=== PATIENT | female | born 1970 | race American Indian/Alaskan Native ===

== ENCOUNTER 2017-10-01 22:10 | Emergency (ER) | payer MEDICAID, OTHER ==
--- NOTE | 2017-10-01 22:48 | EDM.PDOC ---
ED HPI GENERAL MEDICAL PROBLEM - General Chief Complaint: Medication Administration Stated Complaint: ANXIETY MEDS Time Seen by Provider: 10/01/17 22:40 Source of Information: Reports: Patient History Limitations: Reports: No Limitations - History of Present Illness INITIAL COMMENTS - FREE TEXT/NARRATIVE: This 47 yo female patient reports to the ED with increased anxiety due to her falling. The patient reports she took her last Clonazepam just prior to coming to the ED. The patient reports her last refill was in January of last year. The patient reports she has been having a "scratchy" throat for the past 3-4 days. Onset: Unknown/Unsure Duration: Constant Location: Reports: Neck Quality: Reports: Ache, Dull Severity: Moderate Improves with: Reports: None Worsens with: Reports: None Associated Symptoms: Reports: No Other Symptoms - Related Data Allergies Allergy/AdvReac Type Severity Reaction Status Date / Time cyclobenzaprine Allergy Other Verified 10/01/17 22:21 Home Meds: Home Meds Venlafaxine HCl [Venlafaxine ER] 1 tab PO DAILY 10/01/17 [History] clonazePAM [Clonazepam] 1 tab PO DAILY PRN 10/01/17 [History] Past Medical History Psychiatric History: Reports: Anxiety, Depression ED ROS GENERAL - Review of Systems Review Of Systems: ROS reveals no pertinent complaints other than HPI. ED EXAM, GENERAL - Physical Exam Exam: See Below Exam Limited By: No Limitations General Appearance: Alert, WD/WN, Mild Distress Eye Exam: Bilateral Eye: EOMI, Normal Inspection, PERRL Ears: Normal External Exam, Normal Canal, Hearing Grossly Normal, Normal TMs Nose: Normal Inspection, Normal Mucosa, No Blood Throat/Mouth: Normal Inspection, Normal Lips, Normal Teeth, Normal Gums, Normal Voice, No Airway Compromise, Other (slight erythema posterior pharynx) Head: Atraumatic, Normocephalic Neck: Normal Inspection, Supple, Non-Tender, Full Range of Motion Respiratory/Chest: No Respiratory Distress, Lungs Clear, Normal Breath Sounds, No Accessory Muscle Use, Chest Non-Tender Cardiovascular: Normal Peripheral Pulses, Regular Rate, Rhythm, No Edema, No Gallop, No JVD, No Murmur, No Rub GI/Abdominal: Normal Bowel Sounds, Soft, Non-Tender, No Organomegaly, No Distention, No Abnormal Bruit, No Mass (Female) Exam: Deferred Rectal (Female) Exam: Deferred Back Exam: Normal Inspection, Full Range of Motion, NT Extremities: Normal Inspection, Normal Range of Motion, Non-Tender, Normal Capillary Refill, No Pedal Edema Neurological: Alert, Oriented, CN II-XII Intact, Normal Cognition, Normal Gait, Normal Reflexes, No Motor/Sensory Deficits Psychiatric: Normal Affect, Normal Mood Skin Exam: Warm, Dry, Intact, Normal Color, No Rash Lymphatic: No Adenopathy Course - Vital Signs Last Recorded V/S: Last Vital Signs Temp 35.7 C 10/01/17 22:38 Pulse 94 10/01/17 22:38 Resp 16 10/01/17 22:38 BP 144/98 H 10/01/17 22:38 Pulse Ox 99 10/01/17 22:38 - Orders/Labs/Meds Orders: Active Orders 24 hr Category Date Time Status CULTURE STREP A CONFIRMATION [RM] Stat Lab 10/01/17 22:45 Results STREP SCRN A RAPID W CULT CONF [RM] Stat Lab 10/01/17 22:45 Results Departure - Departure Time of Disposition: 22:58 Disposition: Home, Self-Care 01 Condition: Fair Clinical Impression: Anxiety URI (upper respiratory infection) Qualifiers: URI type: unspecified viral URI Qualified Code(s): J06.9 - Acute upper respiratory infection, unspecified - Discharge Information Forms: ED Department Discharge Care Plan Goals: The patient was advised of the examination and lab results during the visit. The patient was encouraged to follow-up with her primary care facility for a refill of her medications. The patient may take over the counter medications for temporary symptom relief from the upper respiratory symptoms. If the patient has any additional symptoms or concerns, the patient should visit her primary care facility or return to the emergency department. - My Orders Last 24 Hours: My Active Orders 10/01/17 22:45 CULTURE STREP A CONFIRMATION [RM] Stat STREP SCRN A RAPID W CULT CONF [RM] Stat - Assessment/Plan Last 24 Hours: My Active Orders 10/01/17 22:45 CULTURE STREP A CONFIRMATION [RM] Stat STREP SCRN A RAPID W CULT CONF [RM] Stat
== END 2017-10-01 23:11 | disposition home or self-care (01) ==
LOC: DL.ED 22:10
DX: F41.9 Anxiety disorder, unspecified (principal); J06.9 Acute upper respiratory infection, unspecified; F32.9 Major depressive disorder, single episode, unspecified; Z79.899 Other long term (current) drug therapy; Z88.8 Allergy status to other drugs, medicaments and biological substances
CPT/HCPCS: 87081; 87430; 99282

== ENCOUNTER 2017-12-14 17:52 | Emergency (ER) | payer MEDICAID, OTHER ==
[2017-12-14] MEDS ORDERED: ClonazePAM 0.5 MG Tab PO ONE (18:24)
--- NOTE | 2017-12-19 09:15 | EDM.PDOCBH ---
Scribed by Gege Tee 12/19/17 0915 for Juhi Del Cid NP ED HPI GENERAL MEDICAL PROBLEM - General Chief Complaint: Behavioral/Psych Stated Complaint: [id number] ANXIETY Time Seen by Provider: 12/14/17 18:15 Source of Information: Reports: Patient, RN, RN Notes Reviewed History Limitations: Reports: No Limitations - History of Present Illness INITIAL COMMENTS - FREE TEXT/NARRATIVE: Patient presents to ER with complaint of anxiety. She states that she has a history of anxiety. She ran out of her clonazepam and cannot get an appointment with mental health until Tuesday. Denies chest pain, shortness of breath, nausea, vomiting, diarrhea, fever or chills. Onset: Gradual Duration: Getting Worse Location: Reports: Generalized Quality: Reports: Ache Severity: Mild Improves with: Reports: None Worsens with: Reports: None Associated Symptoms: Reports: No Other Symptoms - Related Data Allergies Allergy/AdvReac Type Severity Reaction Status Date / Time cyclobenzaprine Allergy Other Verified 10/01/17 22:21 Home Meds: Home Meds Venlafaxine HCl [Venlafaxine ER] 1 tab PO DAILY 10/01/17 [History] clonazePAM [Clonazepam] 1 tab PO DAILY PRN 10/01/17 [History] Past Medical History Psychiatric History: Reports: Anxiety, Depression, Panic Attack Social & Family History - Tobacco Use Smoking Status *Q: Unknown Ever Smoked - Caffeine Use Caffeine Use: Reports: Coffee - Recreational Drug Use Recreational Drug Use: No ED ROS GENERAL - Review of Systems Review Of Systems: ROS reveals no pertinent complaints other than HPI. ED EXAM, BEHAVIORAL HEALTH - Physical Exam Exam: See Below Exam Limited By: No Limitations General Appearance: Anxious Eye Exam: Bilateral Eye: EOMI, Normal Inspection Ears: Normal External Exam Nose: Normal Inspection Throat/Mouth: Normal Inspection, Normal Lips, Normal Voice Head: Atraumatic, Normocephalic Neck: Normal Inspection, Supple, Non-Tender, Full Range of Motion Respiratory/Chest: No Respiratory Distress, Lungs Clear, Normal Breath Sounds, No Accessory Muscle Use, Chest Non-Tender Cardiovascular: Normal Peripheral Pulses GI/Abdominal: Normal Bowel Sounds, Soft, Non-Tender, No Organomegaly, No Distention, No Abnormal Bruit, No Mass (Female) Exam: Deferred Rectal (Female) Exam: Deferred Back Exam: Normal Inspection Extremities: Normal Inspection, Normal Range of Motion, No Pedal Edema Neurological: Alert, Normal Mood/Affect, No Motor/Sensory Deficits Psychiatric: Other (anxious) Skin Exam: Warm, Dry, Intact, Normal color, No rash COURSE, BEHAVIORAL HEALTH COMP - Course Vital Signs: Last Vital Signs Temp 98 F 12/14/17 17:57 Pulse 94 12/14/17 17:57 Resp 18 12/14/17 17:57 BP 144/99 H 12/14/17 17:57 Pulse Ox 98 12/14/17 17:57 Orders, Labs, Meds: Medications Discontinued Medications Generic Name Dose Route Start Last Admin Trade Name Freq PRN Reason Stop Dose Admin Clonazepam 0.5 mg 12/14/17 18:24 12/14/17 18:37 Klonopin PO 12/14/17 18:25 0.5 mg ONETIME ONE Administration Departure - Departure Time of Disposition: 18:23 Disposition: Home, Self-Care 01 Condition: Good Clinical Impression: Anxiety - Discharge Information Instructions: Generalized Anxiety Disorder, Adult, Panic Attack, [id number] Referrals: Jennifer Natarajan MD [Primary Care Provider] - Forms: ED Department Discharge Additional Instructions: RX: Clonazepam 0.5mg. Follow up with your primary care facility/mental health. I have read and agree with the documentation that has been completed regarding this visit. By signing this record, I attest that the documentation was completed in my physical presence and is an accurate record of the encounter.
== END 2017-12-14 18:45 | disposition home or self-care (01) ==
LOC: DL.ED 17:52
DX: F41.9 Anxiety disorder, unspecified (principal); Z88.8 Allergy status to other drugs, medicaments and biological substances; Z79.899 Other long term (current) drug therapy
CPT/HCPCS: 99283; A9270

== ENCOUNTER 2018-02-19 20:26 | Emergency (ER) | payer MEDICAID, OTHER ==
[2018-02-19] MEDS ORDERED: traMADol 50 MG Tab PO ONE (21:16)
[2018-02-19] MEDS ORDERED: Clindamycin HCl 150 MG Cap PO ONE (21:16)
--- NOTE | 2018-02-19 21:18 | EDM.PDOC ---
ED HPI GENERAL MEDICAL PROBLEM - General Chief Complaint: Skin Complaint Stated Complaint: ABSCESS ON SIDE [id number] Time Seen by Provider: 02/19/18 21:12 Source of Information: Reports: Patient History Limitations: Reports: No Limitations - History of Present Illness INITIAL COMMENTS - FREE TEXT/NARRATIVE: c/o recurrent abscess to back. hurts can't sleep unable to lay on back. Right Hip Pain Score (Numeric/FACES): 4 - Related Data Allergies Allergy/AdvReac Type Severity Reaction Status Date / Time cyclobenzaprine Allergy Other Verified 02/19/18 21:10 rofecoxib [From Vioxx] Allergy Other Verified 02/19/18 21:10 Home Meds: Home Meds clonazePAM [Clonazepam] 1 tab PO DAILY PRN 10/01/17 [History] Venlafaxine [Effexor] 37.5 mg PO DAILY 02/19/18 [History] Past Medical History - Past Health History Medical/Surgical History: Denies Medical/Surgical History Psychiatric History: Reports: Anxiety, Depression, Panic Attack - Past Surgical History GI Surgical History: Reports: Cholecystectomy Social & Family History - Tobacco Use Smoking Status *Q: Never Smoker - Caffeine Use Caffeine Use: Reports: Coffee - Recreational Drug Use Recreational Drug Use: No ED ROS GENERAL - Review of Systems Review Of Systems: ROS reveals no pertinent complaints other than HPI. ED EXAM, SKIN/RASH Exam: See Below Exam Limited By: No Limitations General Appearance: Alert, WD/WN, Mild Distress, Other (tearfull) Ears: Hearing Grossly Normal Throat/Mouth: Normal Voice, No Airway Compromise Head: Atraumatic Neck: Non-Tender, Full Range of Motion Respiratory/Chest: No Respiratory Distress Cardiovascular: Regular Rate, Rhythm GI/Abdominal: Soft, Non-Tender Back Exam: Other (2x 1" size form tender mildly erythematous abscess without lymphangitis, 3 x 1/4" firm tender minimal erythema without lymphangitis) Neurological: Alert, Oriented, Normal Cognition, Normal Gait, No Motor/Sensory Deficits Psychiatric: Tearful Skin: Warm, Dry, Normal Color Location, Skin: Back Characteristics: Erythematous Associated features: Tenderness, Inflammation. No: Lymphangitis, Crusting, Weeping Lymphatic: No Adenopathy Course - Vital Signs Last Recorded V/S: Last Vital Signs Temp 36.6 C 02/19/18 20:56 Pulse 94 02/19/18 20:56 Resp 17 07/22/18 20:56 BP 144/89 H 02/19/18 20:56 Pulse Ox 100 02/19/18 20:56 Departure - Departure Time of Disposition: 21:15 Disposition: Home, Self-Care 01 Condition: Good Clinical Impression: Abscess - Discharge Information Instructions: Skin Abscess, [id number] Additional Instructions: 1) try heat pad to abscesses 2) keep abscess covered 3) follow up at clinic rx given; clindamycin 150mg qid x 40 tramadol 50mg daily prn x 4
== END 2018-02-19 21:25 | disposition home or self-care (01) ==
LOC: DL.ED 20:26
DX: L02.212 Cutaneous abscess of back [any part, except buttock and flank] (principal); F41.9 Anxiety disorder, unspecified; F32.9 Major depressive disorder, single episode, unspecified; Z79.899 Other long term (current) drug therapy; Z88.1 Allergy status to other antibiotic agents; Z88.8 Allergy status to other drugs, medicaments and biological substances
CPT/HCPCS: 99282; A9270

== ENCOUNTER 2018-11-23 02:50 | Emergency (ER) | payer MEDICAID, OTHER ==
--- NOTE | 2018-11-23 03:16 | EDM.PDOC ---
ED HPI GENERAL MEDICAL PROBLEM - General Chief Complaint: General Stated Complaint: COLD [id number] Time Seen by Provider: 11/23/18 03:10 Source of Information: Reports: Patient History Limitations: Reports: No Limitations - History of Present Illness INITIAL COMMENTS - FREE TEXT/NARRATIVE: cold congestion x 2 days, no fever or cough. 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 ED EXAM, GENERAL - Physical Exam Exam: See Below Exam Limited By: No Limitations General Appearance: Alert, No Apparent Distress Eye Exam: Bilateral Eye: EOMI Ears: Normal External Exam, Normal TMs Nose: Normal Inspection, Nasal Drainage (scant clear) Throat/Mouth: Normal Inspection Head: Atraumatic, Normocephalic Neck: Normal Inspection Respiratory/Chest: No Respiratory Distress Cardiovascular: Normal Peripheral Pulses, No Murmur GI/Abdominal: Normal Bowel Sounds, Soft Back Exam: Normal Inspection Extremities: Normal Inspection Neurological: Alert, Oriented, Normal Cognition Psychiatric: Normal Affect, Normal Mood Skin Exam: Warm, Dry, Intact Course - Vital Signs Last Recorded V/S: Last Vital Signs Temp 97.0 F 11/23/18 02:59 Pulse 73 11/23/18 02:59 Resp 18 11/23/18 02:59 BP 156/94 H 11/23/18 02:59 Pulse Ox 100 11/23/18 02:59 Departure - Departure Time of Disposition: 03:11 Disposition: Home, Self-Care 01 Condition: Good Clinical Impression: Posterior auricular lymphadenopathy URI (upper respiratory infection) Qualifiers: URI type: unspecified viral URI Qualified Code(s): J06.9 - Acute upper respiratory infection, unspecified - Discharge Information *PRESCRIPTION DRUG MONITORING PROGRAM REVIEWED*: No *COPY OF PRESCRIPTION DRUG MONITORING REPORT IN PATIENT INDU: No Instructions: Upper Respiratory Infection, Adult, [id number] Additional Instructions: increase fluids over counter cough and cold medication as needed per label instruction humidifier follow up if symptoms worsen or increased redness ,swelling of lesion on right side of neck
== END 2018-11-23 03:42 | disposition home or self-care (01) ==
LOC: DL.ED 02:50
CPT/HCPCS: 99282

== ENCOUNTER 2018-12-10 04:19 | Emergency (ER) | payer MEDICAID, OTHER ==
[2018-12-10] MEDS ORDERED: Clindamycin HCl 150 MG Cap PO ONE (04:20)
[2018-12-10] MEDS ORDERED: Clindamycin HCl 150 MG Cap ONE (04:50)
--- NOTE | 2018-12-10 04:56 | EDM.PDOC ---
ED HPI GENERAL MEDICAL PROBLEM - General Chief Complaint: Skin Complaint Stated Complaint: BITE? INFECTED [id number] Time Seen by Provider: 12/10/18 04:30 Source of Information: Reports: Patient History Limitations: Reports: No Limitations - History of Present Illness INITIAL COMMENTS - FREE TEXT/NARRATIVE: C/O abscess to forehead for past 3 days, started out like white pimple picked at it tonight earlier and had some white drainage, hotpacked and put bacitracin on it. Later noted swelling to forehead. No fever or chills. 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 ED EXAM, SKIN/RASH Exam: See Below Exam Limited By: No Limitations General Appearance: Alert, Anxious Eye Exam: Bilateral Eye: EOMI Ears: Normal External Exam Nose: Normal Inspection Throat/Mouth: Normal Inspection Head: Atraumatic, Normocephalic Neck: Normal Inspection Respiratory/Chest: No Respiratory Distress, Lungs Clear, Normal Breath Sounds Cardiovascular: Normal Peripheral Pulses, Regular Rate, Rhythm Back Exam: Full Range of Motion Neurological: Alert, Oriented, Normal Cognition Psychiatric: Anxious Skin: Warm, Dry, Wound/Incision (3mm central crusted lesion right outer forehead with surrounding 1.5cm light pink tender to touch) Course - Vital Signs Last Recorded V/S: Last Vital Signs Temp 97.7 F 12/10/18 04:25 Pulse 94 12/10/18 04:25 Resp 18 12/10/18 04:25 BP 161/101 H 12/10/18 04:25 Pulse Ox 100 12/10/18 04:25 - Orders/Labs/Meds Orders: Active Orders 24 hr Category Date Time Status COMPREHENSIVE METABOLIC PN,CMP [CHEM] Stat Lab 12/10/18 04:40 Received CULTURE BLOOD [BC] Stat Lab 12/10/18 04:40 Received Labs: Laboratory Tests 12/10/18 Range/Units 04:40 WBC 7.7 (5.0-10.0) 10^3/uL RBC 5.04 (4.2-5.4) 10^6/uL Hgb 14.3 (12.0-16.0) g/dL Hct 42.5 (37.0-47.0) % MCV 84.3 (80-100) fL MCH 28.4 (27.0-34.0) pg MCHC 33.6 (33.0-35.0) g/dL Plt Count 279 (150-450) 10^3/uL Neut % (Auto) 50.3 (42.2-75.2) % Lymph % (Auto) 40.3 (20.5-50.1) % Wayne % (Auto) 6.9 (2-8) % Eos % (Auto) 2.2 (1.0-3.0) % Baso % (Auto) 0.3 (0.0-1.0) % Meds: Medications Discontinued Medications Generic Name Dose Route Start Last Admin Trade Name Freq PRN Reason Stop Dose Admin Clindamycin HCl Confirm 12/10/18 04:50 Cleocin Administered 12/10/18 04:51 Dose 600 mg .ROUTE .STK-MED ONE Departure - Departure Time of Disposition: 04:52 Disposition: Home, Self-Care 01 Condition: Good Clinical Impression: Abscess - Discharge Information *PRESCRIPTION DRUG MONITORING PROGRAM REVIEWED*: No *COPY OF PRESCRIPTION DRUG MONITORING REPORT IN PATIENT INDU: No Instructions: Skin Abscess, [id number] Forms: ED Department Discharge Additional Instructions: clindamycin 150mg 2 capsules 4 times daily for one week recheck clinic later this week sooner if increasing redness, swelling and fever warm pack to area 4 times daily bacitracin ointment to abscess - My Orders Last 24 Hours: My Active Orders 12/10/18 04:40 COMPREHENSIVE METABOLIC PN,CMP [CHEM] Stat CULTURE BLOOD [BC] Stat - Assessment/Plan Last 24 Hours: My Active Orders 12/10/18 04:40 COMPREHENSIVE METABOLIC PN,CMP [CHEM] Stat CULTURE BLOOD [BC] Stat
[2018-12-10 05:14] LABS: ANION GAP 13.1; CHLORIDE,CL 104 mmol/L (101-111); SODIUM,NA 136 mmol/L (135-145)
== END 2018-12-10 05:02 | disposition home or self-care (01) ==
LOC: DL.ED 04:19
DX: L02.01 Cutaneous abscess of face (principal); Z88.1 Allergy status to other antibiotic agents; Z79.899 Other long term (current) drug therapy
CPT/HCPCS: 36415; 80053; 85025; 87040; 99283; A9270-GY

== ENCOUNTER 2019-04-28 01:55 | Emergency (ER) | payer MEDICAID ==
[2019-04-28] MEDS ORDERED: Lidocaine 2% Viscous Solution 15 ML Cup PO ONE (01:56)
[2019-04-28] MEDS ORDERED: Clindamycin HCl 150 MG Cap PO ONE (02:28)
[2019-04-28] MEDS ORDERED: traMADol 50 MG Tab PO ONE (02:28)
[2019-04-28] MEDS ORDERED: Lidocaine 2% Viscous Solution 15 ML Cup ONE (02:31)
--- NOTE | 2019-04-28 02:33 | EDM.PDOC ---
ED HPI GENERAL MEDICAL PROBLEM - General Chief Complaint: ENT Problem Stated Complaint: BAD TOOTHACHE Time Seen by Provider: 04/28/19 02:30 Source of Information: Reports: Patient History Limitations: Reports: No Limitations - History of Present Illness INITIAL COMMENTS - FREE TEXT/NARRATIVE: unable to see dentist was at clinic and had some paste put over the hole. Tooth/Teeth Pain Score (Numeric/FACES): 8 - Related Data Allergies Allergy/AdvReac Type Severity Reaction Status Date / Time cyclobenzaprine Allergy Other Verified 04/28/19 02:01 rofecoxib [From Vioxx] Allergy Other Verified 04/28/19 02:01 Home Meds: Home Meds Venlafaxine [Effexor] 37.5 mg PO DAILY 02/19/18 [History] hydrOXYzine HCl [hydrOXYzine] 10 mg PO ASDIRECTED PRN 01/31/19 [History] Past Medical History - Past Health History Medical/Surgical History: Denies Medical/Surgical History HEENT History: Reports: None Cardiovascular History: Reports: None Respiratory History: Reports: None Gastrointestinal History: Reports: None Genitourinary History: Reports: None 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: Musculoskeletal History: Reports: None Neurological History: Reports: None Psychiatric History: Reports: Anxiety, Depression, Panic Attack Endocrine/Metabolic History: Reports: None Hematologic History: Reports: None Immunologic History: Reports: None Oncologic (Cancer) History: Reports: None Dermatologic History: Reports: None - Past Surgical History GI Surgical History: Reports: Cholecystectomy Female Surgical History: Reports: Oophorectomy Social & Family History - Family History Family Medical History: Noncontributory - Tobacco Use Smoking Status *Q: Never Smoker - Caffeine Use Caffeine Use: Reports: Soda - Recreational Drug Use Recreational Drug Use: No ED ROS ENT - Review of Systems Review Of Systems: ROS reveals no pertinent complaints other than HPI. ED EXAM, ENT - Physical Exam Exam: See Below Exam Limited By: No Limitations General Appearance: Alert, WD/WN, Mild Distress, Other (tearful) Ears: Hearing Grossly Normal Mouth/Throat: Dental Abcess, Dental Pain, Dental Tenderness, Other (left lower front molar) Head: Atraumatic Neck: Non-Tender, Full Range of Motion Respiratory/Chest: No Respiratory Distress Cardiovascular: Regular Rate, Rhythm GI/Abdominal: Soft, Non-Tender Neurological: Alert, Oriented, Normal Cognition, Normal Gait, No Motor/Sensory Deficits Psychiatric: Tearful Skin: Warm, Dry, Normal Color Lymphatic: No Adenopathy Course - Vital Signs Last Recorded V/S: Last Vital Signs Temp 35.3 C 04/28/19 02:02 Pulse 74 04/28/19 02:02 Resp 18 04/28/19 02:02 BP 147/91 H 04/28/19 02:02 Pulse Ox 100 04/28/19 02:02 - Orders/Labs/Meds Meds: Medications Discontinued Medications Generic Name Dose Route Start Last Admin Trade Name Freq PRN Reason Stop Dose Admin Clindamycin HCl 300 mg 04/28/19 02:28 Cleocin PO 04/28/19 02:29 ONETIME ONE Tramadol HCl 50 mg 04/28/19 02:28 Ultram PO 04/28/19 02:29 ONETIME ONE Departure - Departure Time of Disposition: 02:31 Disposition: Home, Self-Care 01 Condition: Good Clinical Impression: Dental caries extending into dentin, Dental abscess, Dental caries - Discharge Information Instructions: Dental Abscess, [id number] Additional Instructions: 1) avoid solid foods 2) see DENTIST Tuesday rx given; clindamycin 300mg qid x 40 rx togo; lido viscous apply prn
== END 2019-04-28 02:42 | disposition home or self-care (01) ==
LOC: DL.ED 01:55
DX: K04.7 Periapical abscess without sinus (principal); K02.9 Dental caries, unspecified; F41.9 Anxiety disorder, unspecified; F32.9 Major depressive disorder, single episode, unspecified; Z90.49 Acquired absence of other specified parts of digestive tract; Z79.899 Other long term (current) drug therapy; Z88.8 Allergy status to other drugs, medicaments and biological substances
CPT/HCPCS: 99282; A9270

== ENCOUNTER 2019-05-15 15:14 | Emergency (ER) | payer MEDICAID | END 2019-05-15 17:16 | LOC: DL.ED 15:14 | DX: Z53.21 Procedure and treatment not carried out due to patient leaving prior to being seen by health care provider (principal) ==

== ENCOUNTER 2019-07-12 20:37 | Emergency (ER) | payer MEDICAID ==
--- NOTE | 2019-07-12 21:02 | EDM.PDOC ---
ED HPI GENERAL MEDICAL PROBLEM - General Chief Complaint: ENT Problem Stated Complaint: LEFT BOTTOM JAW AREA TOOTH ACHE Time Seen by Provider: 07/12/19 21:02 Source of Information: Reports: Patient, RN, RN Notes Reviewed History Limitations: Reports: No Limitations - History of Present Illness INITIAL COMMENTS - FREE TEXT/NARRATIVE: patient presents to ER with complaint of toothache in the first left lower molar. patient states she has not been seen by a dentist in quite some time. She states she has had this pain in the past, was seen in the ER, and started on antibiotics. Patient states the pain is a 4/10, with difficulty chewing on the left side, and pain in the left lower jaw. Patient denies fever or chills. Patient denies using Tylenol or ibuprofen for pain, or Orajel or any other oral pain relief medication. Onset: Gradual Left Lower Jaw Pain Score (Numeric/FACES): 4 - Related Data Allergies Allergy/AdvReac Type Severity Reaction Status Date / Time cyclobenzaprine Allergy Other Verified 05/15/19 15:29 rofecoxib [From Vioxx] Allergy Other Verified 05/15/19 15:29 Home Meds: Home Meds Venlafaxine [Effexor] 37.5 mg PO DAILY 02/19/18 [History] hydrOXYzine HCl [hydrOXYzine] 10 mg PO ASDIRECTED PRN 01/31/19 [History] Past Medical History - Past Health History Medical/Surgical History: Denies Medical/Surgical History HEENT History: Reports: None Cardiovascular History: Reports: None Respiratory History: Reports: None Gastrointestinal History: Reports: None Genitourinary History: Reports: None [employer] History: Reports: Musculoskeletal History: Reports: None Neurological History: Reports: None Psychiatric History: Reports: Anxiety, Depression, Panic Attack Endocrine/Metabolic History: Reports: None Hematologic History: Reports: None Immunologic History: Reports: None Oncologic (Cancer) History: Reports: None Dermatologic History: Reports: None - Infectious Disease History Infectious Disease History: Reports: None - Past Surgical History GI Surgical History: Reports: Cholecystectomy Female Surgical History: Reports: Oophorectomy Social & Family History - Family History Family Medical History: Noncontributory - Tobacco Use Smoking Status *Q: Never Smoker Second Hand Smoke Exposure: No - Caffeine Use Caffeine Use: Reports: Coffee, Soda - Recreational Drug Use Recreational Drug Use: No ED ROS GENERAL - Review of Systems Review Of Systems: Comprehensive ROS is negative, except as noted in HPI. ED EXAM, GENERAL - Physical Exam Exam: See Below Exam Limited By: No Limitations General Appearance: Alert, WD/WN, No Apparent Distress Eye Exam: Bilateral Eye: EOMI, Normal Inspection Ears: Normal External Exam, Hearing Grossly Normal Nose: Normal Inspection Throat/Mouth: Normal Voice, No Airway Compromise, Other (left bottom molar cracked, with erythema and inflammation surrounding the tooth.) Head: Atraumatic, Normocephalic Neck: Normal Inspection, Supple, Non-Tender, Full Range of Motion Respiratory/Chest: No Respiratory Distress, Lungs Clear, Normal Breath Sounds, No Accessory Muscle Use, Chest Non-Tender Cardiovascular: Normal Peripheral Pulses, Regular Rate, Rhythm, No Edema, No Gallop, No JVD, No Murmur, No Rub Peripheral Pulses: 2+: Radial (L), Radial (R) GI/Abdominal: Normal Bowel Sounds, Soft, Non-Tender (Female) Exam: Deferred Rectal (Female) Exam: Deferred Back Exam: Normal Inspection, Full Range of Motion, NT Extremities: Normal Inspection, Normal Range of Motion, Non-Tender, Normal Capillary Refill, No Pedal Edema Neurological: Alert, Oriented, CN II-XII Intact, Normal Cognition, Normal Gait, Normal Reflexes, No Motor/Sensory Deficits Psychiatric: Normal Affect, Normal Mood Skin Exam: Warm, Dry, Intact, Normal Color, No Rash Lymphatic: No Adenopathy Course - Vital Signs Last Recorded V/S: Last Vital Signs Temp 96.9 F 07/12/19 20:46 Pulse 82 07/12/19 20:46 Resp 17 07/12/19 20:46 BP 142/90 H 07/12/19 20:46 Pulse Ox 100 07/12/19 20:46 - Orders/Labs/Meds Meds: Medications Discontinued Medications Generic Name Dose Route Start Last Admin Trade Name Zahraa PRN Reason Stop Dose Admin Amoxicillin 500 mg 07/12/19 21:08 07/12/19 21:18 Amoxil PO 07/12/19 21:09 500 mg ONETIME ONE Administration Lidocaine HCl 15 ml 07/12/19 21:08 07/12/19 21:18 Xylocaine 2% Viscous PO 07/12/19 21:09 15 ml ONETIME ONE Administration Departure - Departure Time of Disposition: 21:09 Disposition: Home, Self-Care 01 Condition: Fair Clinical Impression: Dental abscess - Discharge Information *PRESCRIPTION DRUG MONITORING PROGRAM REVIEWED*: No *COPY OF PRESCRIPTION DRUG MONITORING REPORT IN PATIENT INDU: No Instructions: Dental Abscess, [id number] Forms: ED Department Discharge Additional Instructions: RX: Amoxicillin 500mg orally twice daily for 10 days May use Orajel as directed for pain May use Tylenol and/or Ibuprofen as directed for pain Call your dentist [facility] in the morning Sepsis Event Note - Evaluation Sepsis Screening Result: No Definite Risk - Focused Exam Vital Signs: Vital Signs Temp Pulse Resp BP Pulse Ox 07/12/19 20:46 96.9 F 82 17 142/90 H 100 Date Exam was Performed: 07/12/19 Time Exam was Performed: 21:52
[2019-07-12] MEDS ORDERED: Amoxicillin 500 MG Cap PO ONE (21:08)
[2019-07-12] MEDS ORDERED: Lidocaine 2% Viscous Solution 15 ML Cup PO ONE (21:08)
== END 2019-07-12 21:19 | disposition home or self-care (01) ==
LOC: DL.ED 20:37
DX: K04.7 Periapical abscess without sinus (principal); F32.9 Major depressive disorder, single episode, unspecified; Z88.6 Allergy status to analgesic agent; Z88.8 Allergy status to other drugs, medicaments and biological substances; Z79.899 Other long term (current) drug therapy
CPT/HCPCS: 99283; A9270

== ENCOUNTER 2019-12-03 01:08 | Emergency (ER) | payer MEDICAID, OTHER ==
--- NOTE | 2019-12-03 02:10 | EDM.PDOC ---
ED HPI GENERAL MEDICAL PROBLEM - General Chief Complaint: Respiratory Problem Stated Complaint: COUGH Time Seen by Provider: 12/03/19 01:30 Source of Information: Reports: Patient, RN, RN Notes Reviewed History Limitations: Reports: No Limitations - History of Present Illness INITIAL COMMENTS - FREE TEXT/NARRATIVE: Patient presents to ER with complaint of frontal sinus pressure, postnasal drip , cough. Patient states this began about 2 days ago. Patient states she has not taken anything [id number] to help. Patient denies fever chills, admits to cough which is productive at times of clear to yellow production. Patient denies shortness of breath, N/V/D. Onset: Gradual Onset Date: 11/30/19 Duration: Constant Location: Reports: Head, Face Quality: Reports: Pressure Severity: Mild Improves with: Reports: None Worsens with: Reports: None Associated Symptoms: Reports: Cough, Headaches - Related Data Allergies Allergy/AdvReac Type Severity Reaction Status Date / Time cyclobenzaprine Allergy Other Verified 12/03/19 01:16 rofecoxib [From Vioxx] Allergy Other Verified 12/03/19 01:16 Home Meds: Home Meds Venlafaxine [Effexor] 37.5 mg PO DAILY 02/19/18 [History] hydrOXYzine HCL [hydrOXYzine] 10 mg PO ASDIRECTED PRN 01/31/19 [History] Past Medical History - Past Health History Medical/Surgical History: Denies Medical/Surgical History HEENT History: Reports: None Cardiovascular History: Reports: None Respiratory History: Reports: None Gastrointestinal History: Reports: None Genitourinary History: Reports: None [employer]OX INS[employer]OR History: Reports: Musculoskeletal History: Reports: None Neurological History: Reports: None Psychiatric History: Reports: Anxiety, Depression, Panic Attack Endocrine/Metabolic History: Reports: None Hematologic History: Reports: None Immunologic History: Reports: None Oncologic (Cancer) History: Reports: None Dermatologic History: Reports: None - Infectious Disease History Infectious Disease History: Reports: Chicken Pox - Past Surgical History GI Surgical History: Reports: Cholecystectomy Female Surgical History: Reports: Oophorectomy Social & Family History - Family History Family Medical History: Noncontributory - Tobacco Use Smoking Status *Q: Never Smoker Second Hand Smoke Exposure: No - Caffeine Use Caffeine Use: Reports: None - Recreational Drug Use Recreational Drug Use: No ED ROS GENERAL - Review of Systems Review Of Systems: Comprehensive ROS is negative, except as noted in HPI. ED EXAM, GENERAL - Physical Exam Exam: See Below Exam Limited By: No Limitations General Appearance: Alert, WD/WN, No Apparent Distress Eye Exam: Bilateral Eye: EOMI, Normal Inspection Ears: Normal External Exam, Hearing Grossly Normal, Other (TM's dull bilaterally ) Ear Exam: Bilateral Ear: TM Dull Nose: Normal Inspection, Clear Rhinorrhea Throat/Mouth: Normal Inspection, Normal Lips, Normal Teeth, Normal Gums, Normal Oropharynx, Normal Voice, No Airway Compromise Head: Atraumatic, Normocephalic Neck: Lymphadenopathy (L) (+2), Lymphadenopathy (R) (+2) Respiratory/Chest: No Respiratory Distress, Lungs Clear, Normal Breath Sounds, No Accessory Muscle Use, Chest Non-Tender Cardiovascular: Normal Peripheral Pulses, Regular Rate, Rhythm, No Edema, No Gallop, No JVD, No Murmur, No Rub Peripheral Pulses: 2+: Radial (L), Radial (R) GI/Abdominal: Normal Bowel Sounds, Soft, Non-Tender (Female) Exam: Deferred Rectal (Female) Exam: Deferred Back Exam: Normal Inspection, Full Range of Motion, NT Extremities: Normal Inspection, Normal Range of Motion, Non-Tender, Normal Capillary Refill, No Pedal Edema Neurological: Alert, Oriented, CN II-XII Intact, Normal Cognition, Normal Gait, Normal Reflexes, No Motor/Sensory Deficits Psychiatric: Normal Affect, Normal Mood Skin Exam: Warm, Dry, Intact, Normal Color, No Rash Lymphatic: No Adenopathy Course - Vital Signs Last Recorded V/S: Last Vital Signs Temp 96.2 F L 12/03/19 01:13 Pulse 89 12/03/19 01:13 Resp 18 12/03/19 01:13 BP 159/99 H 12/03/19 01:13 Pulse Ox 98 12/03/19 01:13 Departure - Departure Time of Disposition: 02:09 Disposition: Home, Self-Care 01 Condition: Good Clinical Impression: URI (upper respiratory infection) Qualifiers: URI type: unspecified viral URI Qualified Code(s): J06.9 - Acute upper respiratory infection, unspecified - Discharge Information *PRESCRIPTION DRUG MONITORING PROGRAM REVIEWED*: No *COPY OF PRESCRIPTION DRUG MONITORING REPORT IN PATIENT INDU: No Instructions: Viral Respiratory Infection, Vacc-Dd-Ofvo, Sinusitis, Adult, Easy -to-Read, How to Perform a Sinus Rinse, [id number], Upper Respiratory Infection, Adult, [id number] Referrals: PCP,None [Primary Care Provider] - Forms: ED Department Discharge Additional Instructions: May use over the counter Sudafed or other decongestant as directed May use Tylenol and/or Ibuprofen as directed for pain/fever Follow up with your primary care facility if no improvement Sepsis Event Note - Evaluation Sepsis Screening Result: No Definite Risk - Focused Exam Vital Signs: Vital Signs Temp Pulse Resp BP Pulse Ox 12/03/19 01:13 96.2 F L 89 18 159/99 H 98 Date Exam was Performed: 12/03/19 Time Exam was Performed: 04:58
== END 2019-12-03 02:12 | disposition home or self-care (01) ==
LOC: DL.ED 01:08
DX: J06.9 Acute upper respiratory infection, unspecified (principal); F41.0 Panic disorder [episodic paroxysmal anxiety]; F32.9 Major depressive disorder, single episode, unspecified; Z79.899 Other long term (current) drug therapy; Z88.8 Allergy status to other drugs, medicaments and biological substances
CPT/HCPCS: 99283

== ENCOUNTER 2022-02-08 10:15 | Emergency (ER) | payer MEDICAID ==
[2022-02-08] MEDS ORDERED: Sodium Chloride 0.9% 10 ML Syringe FLUSH PRN (10:41)
[2022-02-08] MEDS ORDERED: Ondansetron 4 MG/2 ML SDV IVPUSH ONE (10:43)
[2022-02-08] MEDS ORDERED: Famotidine 20 MG/2 ML SDV IVPUSH ONE (10:43)
[2022-02-08] MEDS ORDERED: Sodium Chloride 0.9% 1,000 ML IV ONE (11:09)
[2022-02-08 11:22] LABS: ANION GAP 13.1 mEq/L (7-13); CHLORIDE,CL 101 mmol/L (98-107); SODIUM,NA 138 mmol/L (136-145)
[2022-02-08 11:28] LABS: ESTIMATED GFR 88 mL/min (>=60)
[2022-02-08] MEDS ORDERED: GI Cocktail Oral Solution 30 ML ONE (11:40)
[2022-02-08] MEDS ORDERED: GI Cocktail Oral Solution 30 ML PO ONE (11:40)
== END 2022-02-08 12:58 | disposition home or self-care (01) ==
LOC: DL.ED 10:15
DX: N30.01 Acute cystitis with hematuria (principal); K29.00 Acute gastritis without bleeding; Z88.8 Allergy status to other drugs, medicaments and biological substances
CPT/HCPCS: 36415; 80053; 81001; 82150; 83690; 84484; 85025; 93005; 96361; 96374; 96375; 99284-25; A9270-GY; J2405; J3490; J7030

== ENCOUNTER 2022-03-18 19:38 | Emergency (ER) | payer MEDICAID | END 2022-03-18 20:00 | disposition left against medical advice (07) | LOC: DL.ED 19:38 | DX: Z53.21 Procedure and treatment not carried out due to patient leaving prior to being seen by health care provider (principal) ==

== ENCOUNTER 2022-03-19 17:29 | Emergency (ER) | payer MEDICAID ==
[2022-03-19] MEDS ORDERED: Doxycycline Monohydrate 100 MG Cap PO ONE (19:05)
[2022-03-19] MEDS ORDERED: methylPREDNISolone Sodium Succinate 125 MG/2 ML SDV IM ONE (19:05)
== END 2022-03-19 19:34 | disposition home or self-care (01) ==
LOC: DL.ED 17:29
DX: L23.7 Allergic contact dermatitis due to plants, except food (principal); Z88.8 Allergy status to other drugs, medicaments and biological substances; Z88.1 Allergy status to other antibiotic agents; Z79.899 Other long term (current) drug therapy; Z90.49 Acquired absence of other specified parts of digestive tract; Z87.891 Personal history of nicotine dependence
CPT/HCPCS: 96372; 99282; A9270-GY; J2930

== ENCOUNTER 2022-05-01 11:28 | Emergency (ER) | payer MEDICAID | END 2022-05-01 11:56 | disposition home or self-care (01) | LOC: DL.ED 11:28 | DX: F32.A Depression, unspecified (principal); Z76.0 Encounter for issue of repeat prescription; Z88.8 Allergy status to other drugs, medicaments and biological substances | CPT/HCPCS: 99281 ==

== ENCOUNTER 2022-08-06 16:47 | Emergency (ER) | payer MEDICAID | END 2022-08-06 17:59 | disposition home or self-care (01) | LOC: DL.ED 16:47 | DX: K02.9 Dental caries, unspecified (principal); Z88.8 Allergy status to other drugs, medicaments and biological substances | CPT/HCPCS: 99282 ==

== ENCOUNTER 2022-10-12 19:50 | Emergency (ER) | payer MEDICAID ==
[2022-10-12] MEDS ORDERED: Sulfamethoxazole/Trimethoprim 800-160 MG Tab PO ONE (22:52)
== END 2022-10-12 23:00 | disposition home or self-care (01) ==
LOC: DL.ED 19:50
DX: L03.312 Cellulitis of back [any part except buttock and flank] (principal); Z88.8 Allergy status to other drugs, medicaments and biological substances
CPT/HCPCS: 99283; A9270; 99282

== ENCOUNTER 2022-10-23 13:15 | Emergency (ER) | payer MEDICAID | END 2022-10-23 15:15 | disposition home or self-care (01) | LOC: DL.ED 13:15 | DX: J06.9 Acute upper respiratory infection, unspecified (principal); Z88.8 Allergy status to other drugs, medicaments and biological substances; Z88.1 Allergy status to other antibiotic agents | CPT/HCPCS: 99282; 99283 ==

== ENCOUNTER 2023-08-07 14:12 | Emergency (ER) | payer MEDICAID ==
[2023-08-07] MEDS ORDERED: Amoxicillin/Clavulanate K 875-125 MG Tab PO ONE (17:58)
== END 2023-08-07 18:23 | disposition home or self-care (01) ==
LOC: DL.ED 14:12
DX: K04.7 Periapical abscess without sinus (principal); Z88.8 Allergy status to other drugs, medicaments and biological substances; Z88.6 Allergy status to analgesic agent
CPT/HCPCS: 99283; A9270-GY